=== PATIENT | female | born 1965 | race Caucasian/White ===

== ENCOUNTER 2017-07-10 18:42 | Inpatient (IN) | payer MEDICARE, MEDICAID ==
[~2017-07-10] VITALS: Ht 162.6 cm; Wt 62.7 kg
[~2017-07-10 18:42] MED LIST: ATEN25TA PO; FESO4TAB PO; HYDR25TA4 PO; LEVE10002 PO; LORA10TA7 PO; METF500T4 PO; OMEP20CA10 PO; PRAM0.258 PO; RANO500T3 PO; SIMV40TA4 PO; [UNRECOGNIZED DRUG - CODE] PO
[2017-07-10] MEDS ORDERED: normal saline 1000ML IV soln IVB ONE (19:40)
[2017-07-10] MEDS ORDERED: HYDROcodone/acetaminophen 10/325mg tab PO ONE (19:40)
[2017-07-10] MEDS ORDERED: ipratropium/albuterol 3ml nebule NEB ONE ×2 (19:40→21:15)
[2017-07-10] MEDS ORDERED: ondansetron/PF 4mg/2ml inj IV ONE (19:40)
[2017-07-10 20:21] LABS: BASOPHILS # (AUTO) 0.1 X10'3 (0-0.2); BASOPHILS % (AUTO) 0.9 % (0-1); EOSINOPHILS # (AUTO) 0.3 X10'3 (0-0.9); EOSINOPHILS % (AUTO) 2.4 % (0-6); HEMATOCRIT 40.6 % (35.0-45.0); HEMOGLOBIN 13.8 g/dl (12.0-16.0); LYMPHOCYTES # (AUTO) 3.4 X10'3 (1.1-4.8); LYMPHOCYTES % (AUTO) 23.1 % (21-51); MEAN CORPUSCULAR HEMOGLOBIN 30.1 PG (27.0-31.0); MEAN CORPUSCULAR HGB CONC 34.1 % (33.0-36.5); MEAN CORPUSCULAR VOLUME 88.2 FL (78-98); MEAN PLATELET VOLUME 8.6 FL (7.4-10.4); MONOCYTES % (AUTO) 6.5 % (2-12); NEUTROPHILS # (AUTO) 9.8 X10'3 (1.8-7.7); NEUTROPHILS % (AUTO) 67.1 % (42-75); PLATELET COUNT 263 X10'3 (140-440); RED CELL DISTRIBUTION WIDTH 14.9 % (11.5-14.5); WHITE BLOOD COUNT 14.6 X10'3 (4.5-11.0)
[2017-07-10 20:31] LABS: INR 0.9 INR; PROTHROMBIN TIME 9.4 SECONDS (9.0-12.0)
[2017-07-10 20:39] LABS: ALANINE AMINOTRANSFERASE 14 U/L (12-78); ALBUMIN 3.6 G/DL (3.4-5.0); ALBUMIN/GLOBULIN RATIO 0.9 (1.1-1.5); ALKALINE PHOSPHATASE 96 IU/L (46-116); ANION GAP 10 (8-16); ASPARTATE AMINO TRANSFERASE 14 U/L (10-37); BILIRUBIN,TOTAL 0.3 MG/DL (0.1-1.0); BLOOD UREA NITROGEN 22 MG/DL (7-18); BUN/CREATININE RATIO 24.4 (6.6-38.0); CALCIUM 9.4 MG/DL (8.5-10.1); CHLORIDE 107 MMOL/L (99-107); GLUCOSE 179 MG/DL (70-104); POTASSIUM 3.8 MMOL/L (3.5-5.1); SODIUM 143 MMOL/L (135-145); TOTAL CARBON DIOXIDE 25.9 MMOL/L (24-32); TOTAL PROTEIN 7.4 G/DL (6.4-8.2); eGFR 65 ML/MIN
[2017-07-10] MEDS ORDERED: temazepam 15mg capsule PO PRN (21:00)
[2017-07-10] MEDS ORDERED: guaiFENesin ER 600mg tablet PO STA (21:12)
[2017-07-10] MEDS ORDERED: LIDOcaine Viscous 15ml cup MM PRN (21:15)
[2017-07-10] MEDS ORDERED: CefTRIAXone 2gm/NS 100ml IVPB 100 ML IV ONE (21:15)
[2017-07-10] MEDS ORDERED: benzonatate 100mg capsule PO ONE (21:15)
[2017-07-10] MEDS ORDERED: ROSU20TA PO (21:26)
[2017-07-10] MEDS ORDERED: PRAM0.253 PO (21:26)
[2017-07-10] MEDS ORDERED: ATEN-27 (21:26)
[2017-07-10] MEDS ORDERED: morphine 5 MG/ML injection IV ONE (22:35)
[2017-07-10] MEDS ORDERED: normal saline 1000ml 1,000 ML IV SCH (22:36)
[2017-07-10] MEDS ORDERED: HYDROcodone/acetaminophen 5mg/325mg tablet PO PRN (22:40)
[2017-07-10] MEDS ORDERED: acetaminophen 325mg tablet PO PRN ×2 (22:40)
[2017-07-10] MEDS ORDERED: morphine 2 MG/ML inj. syringe IV PRN ×2 (22:40)
[2017-07-10] MEDS ORDERED: acetaminophen 650mg rectal suppository RC PRN (22:40)
[2017-07-10] MEDS ORDERED: diphenhydrAMINE 25mg capsule PO PRN (22:40)
[2017-07-10] MEDS ORDERED: HYDROcodone/acetaminophen 10/325mg tab PO PRN (22:40)
[2017-07-10] MEDS ORDERED: metoclopramide 5 mg/ml inj IV PRN (22:40)
[2017-07-10] MEDS ORDERED: bisacodyl 10mg suppository rectal RC PRN (22:40)
[2017-07-10] MEDS ORDERED: ondansetron/PF 4mg/2ml inj IV PRN (22:40)
[2017-07-10] MEDS ORDERED: HYDROmorphone 1 mg/ml syringe IV PRN ×2 (22:40)
[2017-07-10] MEDS ORDERED: mag hydrox/Alum hydrox/simeth 30ml oral suspension PO PRN (22:40)
[2017-07-10] MEDS ORDERED: magnesium hydroxide 30ml (MOM) UD suspension PO PRN (22:40)
[2017-07-10] MEDS ORDERED: diphenhydrAMINE 50 mg/ml inj IV PRN (22:40)
[2017-07-10] MEDS ORDERED: dextrose ORAL solution 15 GM/59 ML bottle PO PRN ×2 (22:45)
[2017-07-10] MEDS ORDERED: dextrose 50%-water 50ml dispensing syringe IV PRN ×2 (22:45)
[2017-07-10] MEDS ORDERED: MESSAGE TO PHARMACY PO ONE (22:45)
[2017-07-10] MEDS ORDERED: glucagon, human recombinant 1mg kit SUBCUT PRN (22:45)
[2017-07-10] MEDS ORDERED: insulin Lispro (HumaLOG) vial - multi-dose SQ SCH (22:45)
[2017-07-10] MEDS ORDERED: azithromycin 250mg tablet PO SCH (23:08)
[2017-07-10] MEDS ORDERED: nicotine 21mg patch - 24 hr TD SCH (23:11)
[2017-07-10] MEDS ORDERED: enoxaparin 60mg/0.6ml syringe SUBCUT SCH (23:16)
[2017-07-10 23:18] LABS: D-DIMER 0.23 MG/L FEU (0-0.50); PARTIAL THROMBOPLASTIN TIME 25 SECONDS (22-32)
[2017-07-10 23:26] LABS: LIPASE 113 U/L (73-393); MAGNESIUM 1.7 MG/DL (1.5-2.4); PHOSPHORUS 4.2 MG/DL (2.3-4.5)
[2017-07-10 23:30] LABS: HEMOGLOBIN A1C 6.1 % (4.5-6.2)
[2017-07-10] MEDS ORDERED: morphine 2 MG/ML inj. syringe IV ONE (23:40)
[2017-07-11 01:18] VITALS: BP 104/68
[2017-07-11 02:08] LABS: BASOPHILS # (AUTO) 0.1 X10'3 (0-0.2); BASOPHILS % (AUTO) 0.4 % (0-1); EOSINOPHILS # (AUTO) 0.3 X10'3 (0-0.9); EOSINOPHILS % (AUTO) 2.3 % (0-6); HEMOGLOBIN 11.9 g/dl (12.0-16.0); LYMPHOCYTES % (AUTO) 25.1 % (21-51); MEAN CORPUSCULAR HEMOGLOBIN 29.6 PG (27.0-31.0); MEAN CORPUSCULAR HGB CONC 33.1 % (33.0-36.5); MEAN CORPUSCULAR VOLUME 89.2 FL (78-98); MONOCYTES # (AUTO) 0.8 X10'3 (0-0.9); MONOCYTES % (AUTO) 6.9 % (2-12); NEUTROPHILS # (AUTO) 7.7 X10'3 (1.8-7.7); NEUTROPHILS % (AUTO) 65.3 % (42-75); PLATELET COUNT 238 X10'3 (140-440); RED BLOOD COUNT 4.04 X10'6 (4.20-5.60); RED CELL DISTRIBUTION WIDTH 14.7 % (11.5-14.5); WHITE BLOOD COUNT 11.8 X10'3 (4.5-11.0)
[2017-07-11 02:18] LABS: ALANINE AMINOTRANSFERASE 22 U/L (12-78); ALBUMIN 3.2 G/DL (3.4-5.0); ALBUMIN/GLOBULIN RATIO 0.9 (1.1-1.5); ALKALINE PHOSPHATASE 90 IU/L (46-116); ANION GAP 4 (8-16); ASPARTATE AMINO TRANSFERASE 19 U/L (10-37); BILIRUBIN,TOTAL 0.2 MG/DL (0.1-1.0); BLOOD UREA NITROGEN 22 MG/DL (7-18); CALCIUM 8.5 MG/DL (8.5-10.1); CHLORIDE 109 MMOL/L (99-107); GLUCOSE 176 MG/DL (70-104); POTASSIUM 3.5 MMOL/L (3.5-5.1); SODIUM 144 MMOL/L (135-145); TOTAL PROTEIN 6.6 G/DL (6.4-8.2); eGFR 52 ML/MIN
[2017-07-11] MEDS ORDERED: pantoprazole 40mg Tablet.DR PO SCH (07:30)
[2017-07-11] MEDS ORDERED: pramipexole 0.25mg tablet PO SCH (08:00)
[2017-07-11] MEDS ORDERED: aspirin 81mg tab.chew PO SCH (08:00)
[2017-07-11] MEDS ORDERED: atorvastatin 20mg tablet PO SCH (08:00)
[2017-07-11] MEDS ORDERED: aspirin 325mg tablet PO SCH (08:00)
[2017-07-11] MEDS ORDERED: lisinopril 5mg tablet PO SCH (08:00)
[2017-07-11] MEDS ORDERED: atenolol 50mg tablet PO SCH (08:00)
[2017-07-11] MEDS ORDERED: docusate sod 100mg capsule PO SCH (08:00)
[2017-07-11] MEDS ORDERED: methylPREDNISolone sod succ 125mg/2ml vial IV SCH (08:00)
[2017-07-11] MEDS ORDERED: ranolazine 500mg SR tablet (Q12H) PO SCH (08:00)
[2017-07-11] MEDS ORDERED: morphine 5 MG/ML injection IV PRN ×2 (15:25→15:27)
[2017-07-11] MEDS ORDERED: lactobacillus rhamnosus 10,000 MMU CELLS/CAPSULE PO SCH (17:30)
[2017-07-11] MEDS ORDERED: cefTRIAXone 1g/NS 100ml IVPB 100 ML IV SCH (21:00)
== END 2017-07-11 07:40 | disposition left against medical advice (07) | DRG 192 ==
LOC: ER 18:42 → ED HOLD 22:36 → CANBEDREQ 07-11 19:33
PROVIDERS: ADMIT Family Medicine; ATTEND Emergency Medicine
DX: J44.1 Chronic obstructive pulmonary disease with (acute) exacerbation (principal); I48.91 Unspecified atrial fibrillation; E11.9 Type 2 diabetes mellitus without complications; G40.909 Epilepsy, unspecified, not intractable, without status epilepticus; F17.210 Nicotine dependence, cigarettes, uncomplicated; G89.29 Other chronic pain; M54.9 Dorsalgia, unspecified; Z53.21 Procedure and treatment not carried out due to patient leaving prior to being seen by health care provider; Z90.49 Acquired absence of other specified parts of digestive tract; Z88.8 Allergy status to other drugs, medicaments and biological substances; Z79.899 Other long term (current) drug therapy; Z79.82 Long term (current) use of aspirin; Z79.84 Long term (current) use of oral hypoglycemic drugs
CPT/HCPCS: 36415; 71046; 80053; 83036; 83690; 83735; 83880; 84100; 84443; 84484; 85025; 85379; 85610; 85730; 87502; 87503; 93005; 94640; 94760; 96361; 96365; 96375; 99285; J0696; J1650; J2270; J2405; J7030; Q0163